=== PATIENT | male | born 1985 | race Caucasian/White ===

== ENCOUNTER 2024-05-06 10:59 | Day surgery (SDC) | payer BC ==
[~2024-05-06 10:59] MED LIST: Midazolam 1 MG/ML 2 ML SDV ONE; Propofol 200 MG/20 ML SDV ONE
[2024-05-06] MEDS: Lactated Ringers 1,000 ML IV SCH (11:43)
[2024-05-06] MEDS ORDERED: Propofol 200 MG/20 ML SDV IV ONE (12:07)
[2024-05-06] MEDS ORDERED: Ketamine 500 mg/10 ML MDV ONE (12:20)
[2024-05-06] MEDS ORDERED: Lactated Ringers 1,000 ML IV SCH (13:00)
[2024-05-06] MEDS ORDERED: Sodium Chloride 0.9% 10 ML Syringe FLUSH PRN (13:00)
== END 2024-05-06 13:08 ==
LOC: LL.SDS 10:59
PROVIDERS: ATTEND Surgery
DX: Z12.11 Encounter for screening for malignant neoplasm of colon (principal); D12.5 Benign neoplasm of sigmoid colon; K21.9 Gastro-esophageal reflux disease without esophagitis; R19.5 Other fecal abnormalities; Z79.899 Other long term (current) drug therapy
CPT/HCPCS: 00813; 43239; 45385; J2250; J2704; J7120